=== PATIENT | male | born 1980 | race Caucasian/White ===

== ENCOUNTER → 2020-06-15 | Outpatient (CLI) | payer OTHER ==
[~2020-06-15] MED LIST: E-Z-GAS II EFFERVESCENT PACKET (SODIUM BICARB./CITRIC ACID/SIMETHICONE) As Ordered ONE; E-Z-HD 98% w/w 340GM SUSP BTL As Ordered ONE; E-Z-PAQUE 96% w/w SUSP 176GM BTL As Ordered ONE
== END ==
LOC: M RAD 07:16
PROVIDERS: ATTEND Specialist
DX: J31.2 Chronic pharyngitis (principal)

== ENCOUNTER → 2021-10-11 | Outpatient (CLI) | payer OTHER | LOC: M LABSMTC 09:11 | PROVIDERS: ATTEND Anesthesiology | DX: Z01.818 Encounter for other preprocedural examination (principal); Z20.828 Contact with and (suspected) exposure to other viral communicable diseases ==

== ENCOUNTER 2021-10-16 10:36 | Day surgery (SDC) | payer OTHER ==
[~2021-10-16] VITALS: Ht 170.2 cm; Wt 99.5 kg
[~2021-10-16 10:36] MED LIST changes: -E-Z-GAS II EFFERVESCENT PACKET (SODIUM BICARB./CITRIC ACID/SIMETHICONE) As Ordered ONE; -E-Z-HD 98% w/w 340GM SUSP BTL As Ordered ONE; -E-Z-PAQUE 96% w/w SUSP 176GM BTL As Ordered ONE; +NS 1,000 ML IV ONE
[2021-10-16] MEDS ORDERED: propofoL 200 MG/20 ML VIAL As Ordered ONE ×2 (13:57→14:54)
[2021-10-16] MEDS ORDERED: fentaNYL 100 MCG/2 ML INJECTION As Ordered ONE (13:57)
[2021-10-16] MEDS ORDERED: LIDOCAINE 2% 100MG/5ML SDV (FOR ANES.) As Ordered ONE (13:57)
[2021-10-16 15:38] VITALS: BP 121/77
== END 2021-10-16 15:41 | disposition home or self-care (01) ==
LOC: M OPP 10:36
PROVIDERS: ATTEND Internal Medicine Gastroenterology
DX: K63.5 Polyp of colon (principal); D50.9 Iron deficiency anemia, unspecified; R19.4 Change in bowel habit; Q43.8 Other specified congenital malformations of intestine; K64.8 Other hemorrhoids; K44.9 Diaphragmatic hernia without obstruction or gangrene; R05.3 Chronic cough; K22.89 Other specified disease of esophagus; K20.90 Esophagitis, unspecified without bleeding
CPT/HCPCS: 43239; 45385; 88305; J3010